=== PATIENT | male | born 1995 | race Two or more races ===

== ENCOUNTER 2023-04-22 16:12 | Emergency (ER) | payer OTHER ==
[~2023-04-22] VITALS: Ht 170.2 cm; Wt 67.0 kg
[2023-04-22] MEDS ORDERED: ACETAMINOPHEN/CODEINE 300-30 MG TABLET PO ONE (17:45)
[2023-04-22 19:30] VITALS: BP 156/72; PULSE 72; RESP 18; TEMP 98
== END 2023-04-22 19:59 | disposition home or self-care (01) ==
LOC: EMS 16:14
DX: S63.124A Dislocation of interphalangeal joint of right thumb, initial encounter (principal); X58.XXXA Exposure to other specified factors, initial encounter; Y93.67 Activity, basketball; Y92.89 Other specified places as the place of occurrence of the external cause; Y99.8 Other external cause status
CPT/HCPCS: 26770; 99284; 73140-TC; Z7502; Z7610